=== PATIENT | female | born 1965 | race Two or more races ===

== ENCOUNTER → 2023-05-06 | Emergency (ER) | payer OTHER ==
[~2023-05-06] VITALS: Ht 165.1 cm; Wt 52.2 kg
[~2023-05-06] MED LIST: ATORVASTATIN CA20 MG PO; BUPROPION HCL150 M1 PO; CITALOPRAM HBR40 MG PO; CYCLOSPORINE100 M1 PO; DEXCOM G61 EACH MC; FLUDROCORTISON0.1 MG PO; GABAPENTIN300 M2 PO; INSULIN AS100 UNIT/2; MYCOPHENOLIC A360 MG PO; OMNIPOD 51 EACH SQ; RAYOS5 MG PO; TRULANCE3 MG
== END | disposition left against medical advice (07) ==
LOC: ER 21:16
DX: Z53.21 Procedure and treatment not carried out due to patient leaving prior to being seen by health care provider (principal)